=== PATIENT | male | born 1965 | race Caucasian/White ===

== ENCOUNTER 2020-06-10 12:23 | Outpatient (CLI) | payer BC | END 2020-06-10 23:59 | disposition home or self-care (01) | LOC: CARD DIAG 12:23 | PROVIDERS: ATTEND Family Medicine | DX: R07.9 Chest pain, unspecified (principal) | CPT/HCPCS: 93306 ==

== ENCOUNTER 2020-07-07 10:52 | Outpatient (CLI) | payer BC | END 2020-07-07 23:59 | disposition home or self-care (01) | LOC: 64 CT 10:52 | PROVIDERS: ATTEND Family Medicine | DX: J33.9 Nasal polyp, unspecified (principal) | CPT/HCPCS: 70486 ==

== ENCOUNTER 2020-08-02 08:51 | Outpatient (CLI) | payer BC | END 2020-08-02 23:59 | disposition home or self-care (01) | LOC: RAD 08:51 | PROVIDERS: ATTEND Family Medicine | DX: R10.30 Lower abdominal pain, unspecified (principal); Z87.19 Personal history of other diseases of the digestive system | CPT/HCPCS: 76881 ==

== ENCOUNTER 2020-12-06 08:37 | Day surgery (SDC) | payer BC ==
[~2020-12-06] VITALS: Ht 170.2 cm; Wt 106.8 kg
[2020-12-06 08:46] VITALS: BP 161/95
[2020-12-06] MEDS ORDERED: fentaNYL/PF 50MCG/1 ML 2ML syringe ONE (08:55)
[2020-12-06] MEDS ORDERED: MIDAZolam 5mg/5ml vial ONE (08:55)
[2020-12-06] MEDS ORDERED: CETI-194 PO (09:04)
[2020-12-06 10:20] VITALS: BP 153/91
[2020-12-06 10:30] VITALS: BP 138/81
[2020-12-06 10:40] VITALS: BP 125/82
[2020-12-06 10:50] VITALS: BP 142/85
== END 2020-12-06 11:05 | disposition home or self-care (01) ==
LOC: GI LAB 08:37
PROVIDERS: ATTEND Internal Medicine Gastroenterology
DX: Z12.11 Encounter for screening for malignant neoplasm of colon (principal); K63.5 Polyp of colon; K64.8 Other hemorrhoids; G47.30 Sleep apnea, unspecified; Z79.899 Other long term (current) drug therapy; Z80.0 Family history of malignant neoplasm of digestive organs
CPT/HCPCS: 45380; 45385; 99152; C1773; J2250; J3010; J7040; 99153; A4620

== ENCOUNTER 2024-01-11 14:31 | Emergency (ER) | payer BC ==
[~2024-01-11] VITALS: Ht 170.2 cm; Wt 109.1 kg
[~2024-01-11 14:31] MED LIST: CETI-194 PO
[2024-01-11 14:46] VITALS: BP 142/89; PULSE 64; TEMP 97.1; O2SAT 97
[2024-01-11] MEDS ORDERED: CYCL-1 PO (15:42)
[2024-01-11 15:54] VITALS: RESP 18
[2024-01-11] MEDS: ketorolac trometh inj. 60 MG/2 ML VIAL IM ONE (15:54)
== END 2024-01-11 17:03 | disposition home or self-care (01) ==
LOC: ER 14:31
DX: S39.012A Strain of muscle, fascia and tendon of lower back, initial encounter (principal); Z79.899 Other long term (current) drug therapy; V43.52XA Car driver injured in collision with other type car in traffic accident, initial encounter; Y93.89 Activity, other specified; Y92.89 Other specified places as the place of occurrence of the external cause; Y99.8 Other external cause status
CPT/HCPCS: 72100; 96372; 99283; J1885